=== PATIENT | female | born 2000 | race Caucasian/White ===

== ENCOUNTER 2019-11-06 05:25 | Emergency (ER) | payer OTHER ==
[~2019-11-06] VITALS: Ht 170.2 cm; Wt 120.2 kg
[~2019-11-06 05:25] MED LIST: IBUP-1222 PO
[2019-11-06 05:28] VITALS: BP 128/89
[2019-11-06] MEDS ORDERED: HYDROcodone/APAP 5/325 TABLET ONE (05:59)
[2019-11-06] MEDS ORDERED: HYDROcodone/APAP 5/325 TABLET PO PRN (06:00)
--- NOTE | 2019-11-06 06:54 | NUR ---
RECEIVED BEDSIDE REPORT FROM DESTINY KELLEY.
--- NOTE | 2019-11-06 07:58 | NUR ---
IN TO D/C PATIENT. PAPER WORK WAS BEDSIDE. PT HAS LEFT ROOM WITH ALL PAPERWORK ON CHART. PT DID NOT WAIT FOR THIS RN. PT LEFT WITH ALL PERSONAL BELONGINGS.
== END 2019-11-06 07:59 | disposition home or self-care (01) ==
LOC: ED 07:30
DX: S60.221A Contusion of right hand, initial encounter (principal); Y04.0XXA Assault by unarmed brawl or fight, initial encounter; Y93.89 Activity, other specified; Y92.009 Unspecified place in unspecified non-institutional (private) residence as the place of occurrence of the external cause; Y99.8 Other external cause status
CPT/HCPCS: 29125; 99283

== ENCOUNTER 2020-08-02 13:35 | Emergency (ER) | payer OTHER, MEDICAID ==
[~2020-08-02] VITALS: Ht 170.2 cm; Wt 125.0 kg
--- NOTE | 2020-08-02 13:40 | NUR ---
NA X 1
[2020-08-02 13:45] VITALS: BP 118/75
[2020-08-02 14:45] LABS: BASOPHILS # (AUTO) 0.02 x10^3/uL (0-0.3); BASOPHILS % (AUTO) 0 % (0-1); EOSINOPHILS # (AUTO) 0.08 x10^3/uL (0-0.8); EOSINOPHILS % (AUTO) 1 % (1-7); LYMPHOCYTES # (AUTO) 1.99 x10^3/uL (1-6.1); LYMPHOCYTES % (AUTO) 25 % (22-44); MD NO; MEAN CORPUSCULAR HEMOGLOBIN 28.2 pg (27.0-34.8); MEAN CORPUSCULAR HGB CONC 32.4 g/dL (32.4-35.8); MEAN CORPUSCULAR VOLUME 87.3 fL (80-100); MEAN PLATELET VOLUME 7.7 fL (7.4-10.4); MONOCYTES # (AUTO) 0.64 x10^3/uL (0-1.4); MONOCYTES % (AUTO) 8 % (2-9); NEUTROPHILS # (AUTO) 5.16 x10^3/uL (1.8-8.0); NEUTROPHILS % (AUTO) 65 % (42-75); PLATELET COUNT 323 x10^3/uL (130-400)
[2020-08-02 14:51] LABS: ALBUMIN 3.3 g/dL (3.4-5.0); ANION GAP 5 mmol/L (5-15); CALCIUM 8.6 mg/dL (8.5-10.1); CHLORIDE 114 mmol/L (98-107); CREATININE 0.71 mg/dL (0.55-1.02)
--- NOTE | 2020-08-02 15:47 | NUR ---
Patient/Caregiver given discharge instructions and they have confirmed that they understand the instructions. Patient ambulatory with steady gait.
== END 2020-08-02 15:48 | disposition home or self-care (01) ==
LOC: ED 14:29
DX: R07.89 Other chest pain (principal); R00.0 Tachycardia, unspecified; F17.200 Nicotine dependence, unspecified, uncomplicated
CPT/HCPCS: 36415; 71045; 80048; 82040; 85025; 85379; 93005; 99285